=== PATIENT | male | born 1990 | race Asian ===

== ENCOUNTER 2017-06-27 07:00 | Day surgery (SDC) | payer OTHER ==
[~2017-06-27 07:00] MED LIST: Buffered Lidocaine 0.9% SYRIN* 5 ML/SYR SYRINGE INTRADERM ONE; Famotidine IV* 10 MG/ML 2 ML (20 mg) IV ONE; Metoclopramide TAB* 10 MG PO ONE
[2017-06-27] MEDS ORDERED: Famotidine IV* 10 MG/ML 2 ML (20 mg) ONE (07:03)
[2017-06-27] MEDS ORDERED: Metoclopramide TAB* 10 MG ONE (07:04)
[2017-06-27] MEDS ORDERED: Oxymetazoline 0.05% NASAL SPR* 15 ML BTL ONE (07:58)
[2017-06-27] MEDS ORDERED: Dexamethasone IV* 4 MG/ML 1 ML (4 MG) ONE (08:03)
[2017-06-27] MEDS ORDERED: Ondansetron INJ* 2 MG/ML VIAL ONE (08:03)
[2017-06-27] MEDS ORDERED: Lidocaine 2% PF * 5 ML VIAL ONE (08:03)
[2017-06-27] MEDS ORDERED: Propofol* 10 MG/ML 20 ML BTL IV PUSH ONE (08:03)
[2017-06-27] MEDS ORDERED: Ketorolac INJ* 30 MG/ML 1 ML VIAL ONE (08:03)
[2017-06-27] MEDS ORDERED: Midazolam* 1 MG/ML 10 ML VIAL (10 MG) ONE (08:04)
[2017-06-27] MEDS ORDERED: KETAMINE HCL* 50 MG/ML 10 ML VIAL ONE (08:04)
[2017-06-27] MEDS ORDERED: fentaNYL* 50 MCG/ML 2 ML VIAL (100 MCG VIAL) ONE (08:04)
[2017-06-27] MEDS ORDERED: Bacitracin OINTMENT* 0.5% 0.5 oz TUBE ONE (08:08)
[2017-06-27] MEDS ORDERED: Lidocaine 4% TOPICAL* 50 ML TOP.SOLN ONE (08:09)
[2017-06-27] MEDS ORDERED: Lidocaine 1% MPF wEPI 200,000* 30 ML SDV ONE (08:09)
[2017-06-27] MEDS ORDERED: oxyCODONE/Acetamin 5/325 MG* TAB PO PRN (08:14)
[2017-06-27] MEDS ORDERED: Ondansetron INJ* 2 MG/ML VIAL IV PRN (08:14)
[2017-06-27] MEDS ORDERED: fentaNYL* 50 MCG/ML 2 ML VIAL (100 MCG VIAL) IV PRN (08:14)
[2017-06-27] MEDS ORDERED: Naloxone* 0.4 MG/ML 1 ML VIAL IV PRN (08:14)
[2017-06-27 10:10] VITALS: BP 108/79
--- NOTE | 2017-06-28 00:48 | OP ---
DATE OF OPERATION: 06/27/17 - DATE OF : 89 SURGEON: Edwar Corrales MD CANARY RAISER: None. ANESTHESIA: Local, MAC. PRE-OP DIAGNOSIS: Turbinate hypertrophy. POST-OP DIAGNOSIS: Turbinate hypertrophy. OPERATIVE PROCEDURE: Bilateral outfracture and cautery of the inferior turbinates. SPECIMENS: None. COMPLICATIONS: None. FINDINGS: Bilateral inferior turbinate hypertrophy. DESCRIPTION OF PROCEDURE: This is a 27-year-old male who has had several years of progressive nasal congestion, inadequately controlled with topical medications and allergy medication. On exam, the patient did have evidence of bilateral inferior turbinate hypertrophy. The decision was made to bring him to the operating room for surgical turbinate reduction. On 06/27/17, the patient was brought to the operating room and IV sedation was given. Both nostrils were packed with pledgets containing Afrin and 4% lidocaine. Each turbinate was then infiltrated with approximately 2 cc of 1% lidocaine with 1: 200,000 epinephrine. Once adequate time had been allotted for vasoconstriction , the procedure was begun. The turbinates were outfractured with a Hall elevator, 3 to 4 passes were made through the length of each turbinate with the Elmed bipolar cautery device at a setting of 4. The turbinates were then outfractured. There was minimal bleeding. The patient was returned to the care of the anesthesiologist and delivered to the PACU in stable condition. [id number] #: [id number] MTDD
== END 2017-06-27 10:22 | disposition home or self-care (01) ==
LOC: OR 07:00
PROVIDERS: ATTEND Otolaryngology
DX: J34.3 Hypertrophy of nasal turbinates (principal)
CPT/HCPCS: A9270-GY; J1100; J1885; J2001; J2250; J2405; J2704; J3010

== ENCOUNTER 2017-09-13 21:36 | Emergency (ER) | payer OTHER ==
[2017-09-13 23:24] VITALS: BP 123/79
--- NOTE | 2017-09-13 23:34 | ED ---
Headache - HPI Summary HPI Summary: 27M presents with headache for the past week. He had a head injury 3 months ago. He states that he had a headache for a couple days. He denies any loss of consciousness at that time. He denies any nausea vomiting at the time. His headache resolved. He states he was asymptomatic for 2 months. He says in the past couple weeks he's been having intermittent head on the same side. He states that it feels the same. He does have a history of migraines. He has family history of migraines. He denies any photophobia or difficulties concentrating. He denies any change in vision. Denies any dizziness. He states his appetite and sleeping patterns have been normal. He denies any double vision. He took some ibuprofen which seemed to help. - History Of Current Complaint Chief Complaint: EDHeadInjury Stated Complaint: HEAD INJURY Time Seen by Provider: 09/13/17 23:32 - Allergies/Home Medications Allergies/Adverse Reactions: Allergies Allergy/AdvReac Type Severity Reaction Status Date / Time No Known Allergies Allergy Verified 09/13/17 21:46 PMH/Surg Hx/FS Hx/Imm Hx Endocrine/Hematology History: Denies: Hx Diabetes Cardiovascular History: Denies: Hx Hypertension, Hx Pacemaker/ICD, Other Cardiovascular Problems/ Disorders Respiratory History: Denies: Other Respiratory Problems/Disorders GI History: Denies: Other GI Disorders History: Denies: Hx Renal Disease Musculoskeletal History: Denies: Other Musculoskeletal History Sensory History: Reports: Hx Contacts or Glasses - glasses Denies: Hx Hearing Aid Opthamlomology History: Reports: Hx Contacts or Glasses - glasses Neurological History: Denies: Other Neuro Impairments/Disorders Psychiatric History: Denies: Hx Panic Disorder - Surgical History Surgery Procedure, Year, and Place: appendectomy, 15 yrs ago, Hx Anesthesia Reactions: No Infectious Disease History: No Infectious Disease History: Denies: Traveled Outside the [place] in Last 30 Days - Family History Known Family History: Positive: Other - migraines - Social History Alcohol Use: None Substance Use Type: Reports: None Smoking Status (MU): Never Smoked Tobacco Review of Systems Negative: Fever Negative: Chest Pain Negative: Shortness Of Breath Negative: Vomiting Positive: Headache All Other Systems Reviewed And Are Negative: Yes Physical Exam Triage Information Reviewed: Yes Vital Signs On Initial Exam: Initial Vitals Temp Pulse Resp BP Pulse Ox 98.4 F 68 12 145/80 100 09/13/17 21:42 09/13/17 21:42 09/13/17 21:42 09/13/17 21:42 09/13/17 21:42 Vital Signs Reviewed: Yes Appearance: Positive: Well-Appearing Skin: Positive: Warm, Dry Head/Face: Positive: Normal Head/Face Inspection, Other - No step off, raccoon eyes, lopez sign Eyes: Positive: Normal, EOMI, MANUEL, Conjunctiva Clear ENT: Positive: Normal ENT inspection, Pharynx normal, TMs normal Respiratory/Lung Sounds: Positive: Clear to Auscultation, Breath Sounds Present Cardiovascular: Positive: Normal, RRR Abdomen Description: Positive: Nontender, Soft Bowel Sounds: Positive: Present Musculoskeletal: Positive: Normal Neurological: Positive: Sensory/Motor Intact, Alert, Oriented to Person Place, Time, CN Intact II-III Psychiatric: Positive: Normal Diagnostics - Vital Signs Vital Signs Temp Pulse Resp BP Pulse Ox 09/13/17 23:23 60 16 123/79 99 09/13/17 21:42 98.4 F 68 12 145/80 100 - Laboratory Lab Statement: Any lab studies that have been ordered have been reviewed, and results considered in the medical decision making process. Headache Course/Dx - Course Course Of Treatment: 27M presents with headache for the past week. He had a head injury 3 months ago. He states that he had a headache for a couple days. He denies any loss of consciousness at that time. He denies any nausea vomiting at the time. His headache resolved. He states he was asymptomatic for 2 months. He says in the past couple weeks he's been having intermittent head on the same side. He states that it feels the same. He does have a history of migraines. He has family history of migraines. He denies any photophobia or difficulties concentrating. He denies any change in vision. Denies any dizziness. He states his appetite and sleeping patterns have been normal. He denies any double vision. He took some ibuprofen which seemed to help. On exam normal neuro exam. With patient's symptoms resolving for a couple months do not believe this is related to the original head injury. Likely just has migraine with history of migraines. Told to take ibuprofen. Gave a referral for neurology if it does not get better. Patient understands agrees with plan. - Diagnoses Differential Diagnosis/HQI/PQRI: Migraine, Tension Headache, Other - consussion Provider Diagnoses: Headache Discharge - Sign-Out/Discharge Documenting (check all that apply): Discharge/Admit/Transfer - Discharge Plan Condition: Good Disposition: HOME Patient Education Materials: General Headache (ED) Referrals: [facility] - Mike BURK [Primary Care Provider] - Marisel Luna MD [Medical Doctor] - Additional Instructions: Take tyenlol or ibuprofen every 6 hours for pain Follow up with primary, a referral for neurology was given in would like to follow up Get plenty of sleep Return to ED if develop any new or worsneing symptoms - Billing Disposition and Condition Condition: GOOD Disposition: HOME
== END 2017-09-13 23:43 | disposition home or self-care (01) ==
LOC: ED 21:36
DX: R51 Headache (principal)
CPT/HCPCS: 99281